=== PATIENT | female | born 1970 | race Caucasian/White ===

== ENCOUNTER 2017-04-22 03:16 | Emergency (ER) | payer BC ==
[~2017-04-22] VITALS: Ht 157.5 cm; Wt 79.4 kg
[~2017-04-22 03:16] MED LIST: ALPR0.25 PO; LEVO25TA2 PO; PANT40TA3 PO
[2017-04-22] MEDS ORDERED: NS 1000ML 1,000 ML ONE ×2 (03:36→04:00)
[2017-04-22] MEDS ORDERED: TORADOL ONE (03:36)
--- NOTE | 2017-04-22 03:38 | ER.PDOC ---
General Chief Complaint: Flank Pain Stated Complaint: FLANK PAIN Time seen by MD: 03:37 Source: patient Exam Limitations: no limitations History of Present Illness Initial Comments Right flank pain Severity/Quality: severe, sharpness Radiation: RLQ Associated Symptoms: nausea/vomiting Exacerbated by: nothing Relieved By: nothing Allergies: Coded Allergies: promethazine (Unverified Allergy, Unknown, 04/23/15) Home Meds Active Scripts Pantoprazole Sodium (PROTONIX) 40 Mg Tablet.dr, 40 MG PO DAILY, #30 BOTTLE Prov:AYLA KHAN MD 04/24/15 Alprazolam (XANAX) 0.25 Mg Tablet, 0.25 MG PO Q6H Y for ANXIETY for 10 Days, TABLET Prov:AYLA KHAN MD 04/24/15 Reported Medications Levothyroxine Sodium (SYNTHROID) 25 Mcg Tablet, 1 TAB PO DAILY, #30 TAB 5 Refills 04/23/15 Vital Signs First Vital Signs Date Time Temp Pulse Resp B/P (MAP) Pulse Ox O2 Delivery O2 Flow Rate FiO2 04/22/17 03:16 98.0 94 20 98 04/22/17 03:28 139/101 (114) Last Vital Signs Date Time Temp Pulse Resp B/P (MAP) Pulse Ox O2 Delivery O2 Flow Rate FiO2 04/22/17 03:28 98.0 94 20 139/101 (114) 98 Past Medical History Medical History: thyroid disease Surgical History: cholecystectomy, , hysterectomy, tonsillectomy LMP (females 10-50): hysterectomy Social History Smoking: less than 1 pack/day Alcohol Use: occassionally Drug Use: none Constitutional: no symptoms reported Respiratory: no symptoms reported Cardiovascular: no symptoms reported Gastrointestinal: see HPI Genitourinary: see HPI All Other Systems: Reviewed and Negative Physical Exam General Appearance: No Apparent Distress, WD/WN Neck: Non-Tender, Full Range of Motion, Supple, Normal Inspection Respiratory: chest non-tender, lungs clear, normal breath sounds, no respiratory distress, no accessory muscle use Cardiovascular: Normal Peripheral Pulses, Regular Rate, Rhythm, No Edema, No Gallop, No JVD, No Murmur Gastrointestinal: Normal Bowel Sounds, No Organomegaly, No Pulsatile Mass, Tenderness (RLQ) Back: Normal Inspection, No CVA Tenderness, No Vertebral Tenderness Extremities: Normal Range of Motion, Non-Tender, Normal Inspection, No Pedal Edema, No Calf Tenderness, Normal Capillary Refill, Pelvis Stable Neurologic/Psychiatric: 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
[2017-04-22] MEDS ORDERED: TORADOL IV STA (03:40)
[2017-04-22 03:51] LABS: BASOPHIL % 0.3 % (0.0-0.2); EOSINOPHIL # 0.1 10^3/uL (0.0-0.2); EOSINOPHIL % 1.2 % (0.0-5.0); HEMOGLOBIN 14.6 g/dL (12.0-15.0); LYMPHOCYTES # 4.6 10^3/uL (1.0-4.8); LYMPHOCYTES % 44.9 % (24.0-44.0); MEAN CELL HGB 31.6 pg (26-34); MEAN CORP VOLUME 95.7 fL (78-100); MEAN PLATELET VOLUME 9.8 fL (7.8-11.0); MONOCYTES # 0.7 10^3/uL (0.3-0.8); MONOCYTES % 7.1 % (5.0-12.0); NEUTROPHIL # 4.7 10^3/uL (1.8-7.7); NEUTROPHILS % 46.3 % (41.0-85.0); RED CELL DISTRIBUTION WIDTH 12.9 % (11.5-14.5); WHITE BLOOD CELL 10.2 10^3/uL (4.5-11.0)
[2017-04-22 03:53] LABS: BILIRUBIN,URINE NEGATIVE (NEGATIVE); UROBILINOGEN,URINE NORMAL (NEGATIVE)
--- NOTE | 2017-04-22 03:55 | NUR ---
CT PATIENT TO CT
--- NOTE | 2017-04-22 04:00 | NUR ---
RETURN TO ROOM PATIENT RETURNED TO ROOM
[2017-04-22] MEDS ORDERED: ZOFRAN ONE (04:12)
[2017-04-22] MEDS ORDERED: DEMEROL ONE (04:13)
[2017-04-22] MEDS ORDERED: ZOFRAN IV STA (04:14)
[2017-04-22] MEDS ORDERED: DEMEROL IV STA (04:14)
[2017-04-22 04:17] LABS: CALCIUM 9.6 mg/dL (8.4-10.5); CARBON DIOXIDE 21.6 mmol/L (20.0-32)
[2017-04-22 04:22] LABS: APPEARANCE,URINE SLIGHTLY HAZY (CLEAR); UA COLOR YELLOW (YELLOW)
[2017-04-22 04:23] LABS: WBC,URINE 0-2 WBC/HPF (0-2)
--- NOTE | 2017-04-22 04:44 | DIREP ---
PROCEDURE:CT ABDOMEN/PELVIS W/O CONTRAST COMPARISON:None. INDICATIONS:RT FLANK PAIN, HX RENAL CALCULI TECHNIQUE:Axial images were created through the abdomen and pelvis without intravenous contrast material. No oral contrast was administered. Sagittal and coronal reconstructions were performed from source images. FINDINGS: LUNG BASES:Normal. No visible pulmonary or pleural disease. LIVER:Normal. No significant liver lesions are identified. BILIARY:Cholecystectomy clips. PANCREAS:Normal. No lesion, fluid collection, ductal dilatation, or atrophy. SPLEEN:Normal. No enlargement or focal lesion. ADRENALS:Normal. No mass or enlargement. URINARY TRACT:Multiple nonobstructing calculi in the left kidney. The largest of these measures 5 mm diameter. Several calculi may be cortical in location. No ureteral obstruction or calculus on either side. Several cortical indentations in the left kidney is suggestive of scarring from previous infection or infarction. AORTA/VASCULAR:Normal. No aneurysm. RETROPERITONEUM:Normal. No mass or adenopathy. BOWEL/MESENTERY:The appendix is normal. There is no intestinal obstruction, free air, free fluid, or mesenteric inflammation. ABDOMINAL WALL:Normal. No mass or hernia. PELVIC ORGANS:Hysterectomy. Multiple small calcifications in the pelvis are consistent with phleboliths. BONES:No acute pathology. OTHER:Negative. CONCLUSION: 1. Left renal cortical scarring and multiple left renal calcifications. No evidence of hydronephrosis or obstructing ureteral calculus on either side. 2. Previous cholecystectomy and hysterectomy. Dictated by: Zen Atkinson M.D. on 04/22/2017 at 04:37 AM
[2017-04-22 05:11] VITALS: BP 109/85
== END 2017-04-22 05:10 | disposition home or self-care (01) ==
LOC: ER 03:16
DX: N20.0 Calculus of kidney (principal); E07.9 Disorder of thyroid, unspecified; F17.200 Nicotine dependence, unspecified, uncomplicated; Z90.49 Acquired absence of other specified parts of digestive tract; Z88.8 Allergy status to other drugs, medicaments and biological substances; Z79.899 Other long term (current) drug therapy
CPT/HCPCS: 36415; 74176; 80053; 81000; 85025; 85610; 96361; 96374; 96375; 99285; J1885; J2175; J2405; J7030